=== PATIENT | female | born 1990 | race Caucasian/White ===

== ENCOUNTER 2023-07-18 18:10 | Outpatient (CLI) | payer MEDICAID | END 2023-07-18 23:59 | disposition home or self-care (01) | LOC: LAB SPEC 18:10 | PROVIDERS: ATTEND Surgery | DX: C11.0 Malignant neoplasm of superior wall of nasopharynx (principal) | CPT/HCPCS: 87070; 87075; 87077; 87186 ==

== ENCOUNTER 2023-09-13 11:01 | Outpatient (CLI) | payer MEDICAID | END 2023-09-13 23:59 | disposition home or self-care (01) | LOC: LAB 11:01 | PROVIDERS: ATTEND Surgery | DX: N61.0 Mastitis without abscess (principal) | CPT/HCPCS: 87070 ==

== ENCOUNTER 2023-11-23 07:10 | Day surgery (SDC) | payer MEDICAID ==
[2023-11-19 15:14] LABS: BASOPHILS % (AUTO) 0.2 % (0-1); EOSINOPHILS # (AUTO) 0.1 X10'3 (0-0.9); EOSINOPHILS % (AUTO) 1.1 % (0-6); LYMPHOCYTES # (AUTO) 2.9 X10'3 (1.1-4.8); LYMPHOCYTES % (AUTO) 27.7 % (21-51); MEAN CORPUSCULAR HEMOGLOBIN 29.7 PG (27.0-31.0); MEAN CORPUSCULAR HGB CONC 33.7 g/dL (33.0-36.5); MEAN CORPUSCULAR VOLUME 88.3 FL (78-98); MEAN PLATELET VOLUME 8.8 FL (7.4-10.4); MONOCYTES # (AUTO) 0.5 X10'3 (0-0.9); MONOCYTES % (AUTO) 4.9 % (2-12); NEUTROPHILS # (AUTO) 6.9 X10'3 (1.8-7.7); NEUTROPHILS % (AUTO) 66.1 % (42-75); PRE OP HEMATOCRIT 41.4 % (35.0-45.0); PRE OP PLATELET COUNT 213 X10'3 (140-440); PRE OP WHITE BLOOD COUNT 10.5 10'3 (4.8-10.8); RED BLOOD COUNT 4.69 X10'6 (4.20-5.60); RED CELL DISTRIBUTION WIDTH 14.5 % (11.5-14.5)
[2023-11-19 15:41] LABS: ALBUMIN 3.8 G/DL (3.4-5.0); ALBUMIN/GLOBULIN RATIO 1.2 (1.1-1.5); ALKALINE PHOSPHATASE 39 IU/L (46-116); BLOOD UREA NITROGEN 10 MG/DL (7-18); BUN/CREATININE RATIO 14.9 (10.0-20.0); CALCIUM 9.2 MG/DL (8.5-10.1); CHLORIDE 106 MMOL/L (99-107); CREATININE 0.67 MG/DL (0.40-0.90); PRE OP ALT 17 U/L (30-65); PRE OP ANION GAP 9 (8-16); PRE OP AST 12 U/L (10-37); PRE OP BILIRUB, TOTAL 0.4 MG/DL (0.0-1.0); PRE OP GLUCOSE 82 MG/DL (70-104); PRE OP POTASSIUM 3.7 MMOL/L (3.4-5.1); PRE OP SODIUM 141 MMOL/L (135-145); TOTAL CARBON DIOXIDE 25.9 MMOL/L (24-32); TOTAL PROTEIN 6.9 G/DL (6.4-8.2); eGFR > 90 ML/MIN
[2023-11-23] VITALS (10 sets, daily range): BP systolic 110–123; BP diastolic 63–78; PULSE 59–89; RESP 11–17; TEMP 97.6; O2SAT 93–100
[~2023-11-23] VITALS: Ht 188 cm; Wt 79.7 kg
[2023-11-23] MEDS: ceFAZolin 1,000 MG in NS 50ML IVPB IV ONE (05:30)
[~2023-11-23 07:10] MED LIST: NO HOME MEDS
[2023-11-23] MEDS ORDERED: LIDOcaine 1% 30ml preserv. free vial ONE (07:15)
[2023-11-23] MEDS ORDERED: BUPIVAcaine HCl 0.25%/EPInephrine 1:200,000 inj. 10 ML VIAL ONE (07:16)
[2023-11-23] MEDS ORDERED: LIDOcaine 1% (10mg/ml)w/preservative inj. 20ml MDV ONE (07:16)
[2023-11-23] MEDS ORDERED: BUPIVAcaine 2.5mg/ml inj 50ml vial (contains preservative) ONE (07:16)
[2023-11-23] MEDS: famotidine 20mg tablet PO ONE (07:48)
[2023-11-23] MEDS: ringers solution, lacted 1,000 ML IV SCH (07:48)
[2023-11-23] MEDS: cefazolin 2gm/D5W 100mL 100 ML IV ONE (08:15)
[2023-11-23] MEDS ORDERED: ringers solution, lacted 1,000 ML IV SCH (08:35)
[2023-11-23] MEDS ORDERED: meperidine/PF 25mg/ml syringe IV PRN ×3 (08:35)
[2023-11-23] MEDS ORDERED: morphine 4 MG/ML inj SYRINge IV PRN (08:35)
[2023-11-23] MEDS ORDERED: morphine 2 MG/ML inj. syringe IV PRN (08:35)
[2023-11-23] MEDS ORDERED: proCHLORperazine 10 MG/2 ml inj IV PRN (08:35)
[2023-11-23] MEDS ORDERED: ondansetron/PF 4mg/2ml inj IV PRN (08:35)
[2023-11-23] MEDS ORDERED: sevoflurane 250ml liquid IH ONE (09:46)
[2023-11-23] MEDS ORDERED: midazolam 1 mg/ML 2ml injection ONE (09:53)
[2023-11-23] MEDS ORDERED: fentaNYL/PF 50MCG/1 ML 2ML syringe ONE (09:53)
[2023-11-23] MEDS ORDERED: ondansetron/PF 4mg/2ml inj ONE (10:19)
[2023-11-23] MEDS ORDERED: dexamethasone sod phosphate 4mg/ml inj. ONE (10:19)
[2023-11-23] MEDS ORDERED: propofol inj 20 ML IV ONE (10:19)
[2023-11-23] MEDS ORDERED: rocuronium 10mg/ml inj IV ONE (10:30)
[2023-11-23] MEDS ORDERED: sugammadex 200mg/2ml injection IV ONE (10:30)
[2023-11-23] MEDS ORDERED: acetaminophen 1,000mg/100ml IV 100 ML IV ONE (10:36)
[2023-11-23] MEDS: oxyCODONE/APAP 5-325mg tablet PO ONE (11:13)
== END 2023-11-23 11:59 | disposition home or self-care (01) ==
LOC: PAS 07:10
PROVIDERS: ATTEND Surgery
DX: N60.82 Other benign mammary dysplasias of left breast (principal); N61.1 Abscess of the breast and nipple; I25.2 Old myocardial infarction; F12.90 Cannabis use, unspecified, uncomplicated; F17.210 Nicotine dependence, cigarettes, uncomplicated; Z98.890 Other specified postprocedural states; Z79.899 Other long term (current) drug therapy
CPT/HCPCS: 19120; 36415; 80053; 82948; 85025; 87015; 87070; 87075; 87116; 87206; 93005; J0131; J0690; J1100; J2250; J2405; J2704; J3010; J3490; J7030; J7120; Z7506; Z7512; A4215; A4618; A6449; A7000